=== PATIENT | female | born 1995 | race American Indian/Alaskan Native ===

== ENCOUNTER 2017-06-04 07:29 | Emergency (ER) | payer SELFPAY ==
[2017-06-04 07:54] VITALS: BP 121/51
--- NOTE | 2017-06-04 08:44 | XRay Report ---
FINAL REPORT EXAM: XR ANKLE 3+V RT HISTORY: right ankle injury after a fall TECHNIQUE: Three views of the right ankle. PRIORS: None. FINDINGS: There is no evidence of acute fracture. There is no evidence of joint dislocation. There is no focal osseous lesions seen. IMPRESSION: There is no acute abnormality identified.
[2017-06-04] MEDS ORDERED: TORADOL IM ONE (11:20)
--- NOTE | 2017-06-04 11:21 | Emergency Department Report ---
ED Lower Extremity HPI - General Chief Complaint: Extremity Injury, Lower Stated Complaint: RIGHT ANKLE PAIN Source: patient Mode of arrival: Wheelchair Limitations: No Limitations - History of Present Illness Initial Comments: 21 y/o nontoxic in appearance F presents to the ER complaining of slipping and inverted her right foot when she slipped on ice earlier this morning. Pt states that she has noticed pain, swelling, and limited ROM of the right ankle. Pt denies any radiation of the pain, no numbness, or tingling. Pt reports to 7/10 in severity pain. She has not tried anything for the pain at this time. She denies hitting her head, no LOC, CP, SOB, fever, chills, nausea, or vomitting. LMP: 05/18/17, denies any chance of at this time MD Complaint: ankle injury (right) -: days(s) (1) Injury: Ankle: Right Type of Injury: inversion Place: work Severity: severe Severity scale (0 -10): 7 Improves With: immobilization Worsens With: weight bearing Context: fall Associated Symptoms: swelling, able to partially bear weight - Related Data Previous Rx's Medication Instructions Recorded Last Taken Type Famotidine [Pepcid] 20 mg PO BID #20 tablet 02/25/15 Unknown Rx Loratadine [Claritin] 10 mg PO DAILY #30 tablet 02/25/15 Unknown Rx Prednisone [predniSONE 10 mg 10 mg PO .TAPER #1 tab.ds.pk 02/25/15 Unknown Rx (6-Day Pack, 21 Tabs)] Diclofenac Sodium 50 mg PO BID PRN #20 tab 06/04/17 Unknown Rx Allergies Allergy/AdvReac Type Severity Reaction Status Date / Time shellfish derived AdvReac Swelling Verified 02/25/15 11:13 ED Review of Systems ROS: Stated complaint: RIGHT ANKLE PAIN Other details as noted in HPI Constitutional: denies: chills, fever Eyes: denies: eye pain, eye discharge, vision change ENT: denies: ear pain, throat pain Respiratory: denies: cough, shortness of breath, wheezing Cardiovascular: denies: chest pain, palpitations Gastrointestinal: denies: abdominal pain, nausea, diarrhea Genitourinary: denies: urgency, dysuria, discharge Musculoskeletal: joint swelling, arthralgia, myalgia Skin: other (redness and swelling) Neurological: denies: headache, weakness, paresthesias Psychiatric: denies: anxiety, depression Hematological/Lymphatic: denies: easy bleeding, easy bruising ED Past Medical Hx - Past Medical History Previous Medical History?: No - Surgical History Past Surgical History?: No - Social History Smoking Status: Never Smoker Substance Use Type: Non Opiate Pain - Medications Home Medications: Home Medications Medication Instructions Recorded Confirmed Last Taken Type Famotidine [Pepcid] 20 mg PO BID #20 tablet 02/25/15 Unknown Rx Loratadine [Claritin] 10 mg PO DAILY #30 tablet 02/25/15 Unknown Rx Prednisone [predniSONE 10 mg 10 mg PO .TAPER #1 tab.ds.pk 02/25/15 Unknown Rx (6-Day Pack, 21 Tabs)] Diclofenac Sodium 50 mg PO BID PRN #20 tab 06/04/17 Unknown Rx ED Physical Exam - General Limitations: No Limitations General appearance: alert, in no apparent distress - Head Head exam: Present: atraumatic, normocephalic, normal inspection - Eye Eye exam: Present: normal appearance, PERRL, EOMI Pupils: Present: normal accommodation - ENT ENT exam: Present: mucous membranes moist - Neck Neck exam: Present: normal inspection, full ROM - Respiratory Respiratory exam: Present: normal lung sounds bilaterally. Absent: respiratory distress - Cardiovascular Cardiovascular Exam: Present: regular rate, normal rhythm. Absent: systolic murmur, diastolic murmur, rubs, gallop - Extremities Exam Extremities exam: Present: tenderness, joint swelling, other (ttp at the right lateral asepct of the ankle, ROM with extension and flexion of the ankle increases the pain, TTP along the fibula to the calaneus) - Expanded Lower Extremity Exam Right Upper Leg exam: Present: normal inspection, full ROM Knee exam: Present: normal inspection, full ROM Lower Leg exam: Present: normal inspection, full ROM Ankle exam: Present: tenderness (along the lateral aspect of the right ankle from the distal fibula to the calcneus, swelling and redness noted, limited flex and extension of the ankle), swelling (there is no gross deformity, pulses ans sensation are WNL, strength with 5/5 with plantarflexion, 4/5 with dorsiflexion) Foot/Toe exam: Present: normal inspection, full ROM Gait: Positive: observed and limited by pain - Back Exam Back exam: Present: normal inspection - Neurological Exam Neurological exam: Present: alert, oriented X3, CN II-XII intact - Expanded Neurological Exam Expanded Patient oriented to: Present: person, place, time Speech: Present: fluid speech Cranial nerves: EOM's Intact: Normal Best Eye Response (Inga): (4) open spontaneously Best Motor Response (Inga): (6) obeys commands Best Verbal Response (Kenna): (5) oriented Inga Total: 15 - Psychiatric Psychiatric exam: Present: normal affect, normal mood - Skin Skin exam: Present: warm, dry, intact, other (swelling and redness). Absent: rash ED Course Vital Signs 06/04/17 06/04/17 07:52 11:36 Temperature 98.2 F Pulse Rate 76 Respiratory 16 18 Rate Blood Pressure 121/51 O2 Sat by Pulse 98 Oximetry ED Lower Extremity MDM - Radiology Data Radiology results: report reviewed XR right ankle: there is no evidence of acute fracture, joint dislocation, or any focal osseous lesions. unremarkable study. - Medical Decision Making XR of the Right ankle was unremarkable. Therefore, I will treat as an ankle sprain with Diclofenac Sodium 50 mg BID. RICE=therapy explained to the patient. I have provided pt with ankle stirrup and crutches at this time. I have provided pt with referrals to orthopedics. Pt was alert and oriented, no resp distress, stable, speaking in full sentences throughout ED stay. Critical care attestation.: If time is entered above; I have spent that time in minutes in the direct care of this critically ill patient, excluding procedure time. ED Disposition Clinical Impression: Right ankle sprain Qualifiers: Encounter type: initial encounter Involved ligament of ankle: unspecified ligament Qualified Code(s): S93.401A - Sprain of unspecified ligament of right ankle, initial encounter Disposition: TO HOME OR SELFCARE Is pt being admited?: No Does the pt Need Aspirin: No Condition: Stable Instructions: Diclofenac (By mouth), Ankle Sprain (ED), RICE Therapy (ED) Additional Instructions: RICE= rest, ice, compress, and elevate the joint. Take pain medications as needed for pain and swelling. please follow-up with PCP within 3-5 days. Please return to the ER immediately if your presenting symptoms acutely progress or worsen. Prescriptions: Diclofenac Sodium 50 mg PO BID PRN #20 tab PRN Reason: Pain Referrals: [facility] [Outside] - 3-5 Days [facility] [Outside] - 3-5 Days JORJE NAVARRO MD [Primary Care Provider] - 3-5 Days BARON BEDOLLA MD [Staff Physician] - 3-5 Days Forms: Work/School Release Form(ED)
== END 2017-06-04 12:28 | disposition home or self-care (01) ==
LOC: ED 07:29
DX: S93.401A Sprain of unspecified ligament of right ankle, initial encounter (principal); W01.198A Fall on same level from slipping, tripping and stumbling with subsequent striking against other object, initial encounter; Y93.89 Activity, other specified; Y92.89 Other specified places as the place of occurrence of the external cause; Y99.8 Other external cause status
CPT/HCPCS: 73610; 96372; 99283; J1885

== ENCOUNTER 2017-08-24 19:32 | Emergency (ER) | payer MEDICAID ==
[2017-08-24 20:38] LABS: Basophils % (Auto) 0.2 % (0.0-1.8); Eosinophils % (Auto) 0.2 % (0.0-4.3); Hematocrit 38.7 % (30.3-42.9); Hemoglobin 12.4 gm/dl (10.1-14.3); Lymphocytes # (Auto) 1.9 K/mm3 (1.2-5.4); Lymphocytes % (Auto) 22.1 % (13.4-35.0); Mean Corpuscular HGB Conc 32 % (30-34); Mean Corpuscular Hemoglobin 29 pg (28-32); Mean Corpuscular Volume 91 fl (79-97); Monocytes # (Auto) 0.6 K/mm3 (0.0-0.8); Monocytes % (Auto) 7.4 % (0.0-7.3); Platelet Count 252 K/mm3 (140-440); Red Blood Count 4.27 M/mm3 (3.65-5.03); Red Cell Distribution Width 14.8 % (13.2-15.2)
[2017-08-24 20:52] LABS: Alanine Aminotransferase 8 units/L (7-56); BUN/Creatinine Ratio 12; Blood Urea Nitrogen 7 mg/dL (7-17); Calcium 9.1 mg/dL (8.4-10.2); Hemolysis Index 6
[2017-08-24 20:59] LABS: Bilirubin,Urine NEG (Negative); Blood,Urine NEG (Negative); Color,Urine Yellow (Yellow); Mucus,Urine 2+ /HPF; Urobilinogen,Urine < 2.0 mg/dL (<2.0)
[2017-08-24] MEDS ORDERED: ZOFRAN ORAL LIQ PO ONE (22:19)
[2017-08-24] MEDS ORDERED: CARAFATE PO ONE (22:19)
[2017-08-24] MEDS ORDERED: PEPCID PO ONE (22:19)
[2017-08-24] MEDS ORDERED: BENTYL PO ONE (22:19)
--- NOTE | 2017-08-24 22:20 | Emergency Department Report ---
ED General Adult HPI - General Chief complaint: Abdominal Pain Stated complaint: NAUSEA Time Seen by Provider: 08/24/17 22:07 Source: patient, RN notes reviewed Mode of arrival: Ambulatory Limitations: No Limitations - History of Present Illness Initial comments: This is a 21-year-old female who was previously unknown to this provider, she has no chronic medical conditions and she denies history of abdominal surgeries. Primary care doctor is Dr. Andrews The patient presents to the ER with complaint of burning right upper quadrant pain, which is present for 3 days, does not radiate anywhere, worsens with inspiration, and is accompanied by 3 episodes of nausea and vomiting. Last episode of emesis was at 12:00 PM today. There is no chest pain there is no shortness of breath to me the patient denies dizziness. She also denies headache, neck pain, irritative urinary symptoms, denies hematemesis and bright red blood per rectum, denies constipation, and denies DVT and pulmonary embolus risk factors. She specifically denies oral contraceptives, recent surgeries, recent trips, recent hospital admissions. -: Gradual Location: abdomen Radiation: non-radiation Severity scale (0 -10): 5 Quality: burning Consistency: intermittent Improves with: other Worsens with: other Associated Symptoms: nausea/vomiting. denies: confusion, chest pain, cough, diaphoresis, fever/chills, headaches, loss of appetite, malaise, rash, seizure, shortness of breath, syncope, weakness - Related Data Previous Rx's Medication Instructions Recorded Last Taken Type Famotidine [Pepcid] 20 mg PO BID #20 tablet 02/25/15 Unknown Rx Loratadine [Claritin] 10 mg PO DAILY #30 tablet 02/25/15 Unknown Rx Prednisone [predniSONE 10 mg 10 mg PO .TAPER #1 tab.ds.pk 02/25/15 Unknown Rx (6-Day Pack, 21 Tabs)] Diclofenac Sodium 50 mg PO BID PRN #20 tab 06/04/17 Unknown Rx Dicyclomine [Bentyl] 10 mg PO QID PRN #20 capsule 08/24/17 Unknown Rx Famotidine [Pepcid] 20 mg PO BID #60 tablet 08/24/17 Unknown Rx Ondansetron [Zofran Odt] 4 mg PO Q8HR PRN #20 tab.rapdis 08/24/17 Unknown Rx Allergies Allergy/AdvReac Type Severity Reaction Status Date / Time shellfish derived AdvReac Swelling Verified 02/25/15 11:13 ED Review of Systems ROS: Stated complaint: NAUSEA Other details as noted in HPI Comment: All other systems reviewed and negative ED Past Medical Hx - Past Medical History Previous Medical History?: Yes Additional medical history: heart murmur - Surgical History Past Surgical History?: No - Social History Smoking Status: Current Every Day Smoker Substance Use Type: Marijuana - Medications Home Medications: Home Medications Medication Instructions Recorded Confirmed Last Taken Type Famotidine [Pepcid] 20 mg PO BID #20 tablet 02/25/15 Unknown Rx Loratadine [Claritin] 10 mg PO DAILY #30 tablet 02/25/15 Unknown Rx Prednisone [predniSONE 10 mg 10 mg PO .TAPER #1 tab.ds.pk 02/25/15 Unknown Rx (6-Day Pack, 21 Tabs)] Diclofenac Sodium 50 mg PO BID PRN #20 tab 06/04/17 Unknown Rx Dicyclomine [Bentyl] 10 mg PO QID PRN #20 capsule 08/24/17 Unknown Rx Famotidine [Pepcid] 20 mg PO BID #60 tablet 08/24/17 Unknown Rx Ondansetron [Zofran Odt] 4 mg PO Q8HR PRN #20 tab.rapdis 08/24/17 Unknown Rx ED Physical Exam - General Limitations: No Limitations General appearance: alert, in no apparent distress - Head Head exam: Present: atraumatic, normocephalic - Eye Eye exam: Present: normal appearance, EOMI. Absent: nystagmus - ENT ENT exam: Present: normal exam, normal orophraynx, mucous membranes moist, normal external ear exam - Neck Neck exam: Present: normal inspection, full ROM. Absent: tenderness, meningismus - Respiratory Respiratory exam: Present: normal lung sounds bilaterally. Absent: respiratory distress - Cardiovascular Cardiovascular Exam: Present: regular rate, normal rhythm, normal heart sounds. Absent: bradycardia, tachycardia, irregular rhythm, systolic murmur, diastolic murmur, rubs, gallop - GI/Abdominal GI/Abdominal exam: Present: soft, normal bowel sounds, other (there is a negative Sotomayor sign. There is negative Rovsing sign. There is no right lower quadrant tenderness. There is no right upper quadrant). Absent: distended, tenderness, guarding, rebound, rigid, pulsatile mass - Extremities Exam Extremities exam: Present: normal inspection, full ROM, normal capillary refill. Absent: pedal edema, joint swelling, calf tenderness - Back Exam Back exam: Present: normal inspection, full ROM. Absent: tenderness, CVA tenderness (R), paraspinal tenderness, vertebral tenderness - Neurological Exam Neurological exam: Present: alert, oriented X3, CN II-XII intact, normal gait, other (Extraocular movements intact. Tongue midline. No facial droop. Facial sensation intact to light touch in the V1, V2, V3 distribution bilaterally. 5 and 5 strength in 4 extremities.. Sensation is intact to light touch in 4 extremities.). Absent: motor sensory deficit - Psychiatric Psychiatric exam: Present: normal affect, normal mood - Skin Skin exam: Present: warm, dry, intact, normal color. Absent: rash ED Course Vital Signs 08/24/17 08/24/17 08/24/17 20:03 21:50 21:55 Temperature 98.9 F 98.6 F Pulse Rate 79 96 H Respiratory 18 16 Rate Blood Pressure 120/60 Blood Pressure 119/67 [Right] O2 Sat by Pulse 99 98 100 Oximetry 08/24/17 08/24/17 21:58 22:00 Temperature Pulse Rate Respiratory 16 Rate Blood Pressure 120/59 Blood Pressure [Right] O2 Sat by Pulse 100 100 Oximetry ED Medical Decision Making - Lab Data Result diagrams: 08/24/17 20:13 08/24/17 20:13 Vital Signs 08/24/17 08/24/17 08/24/17 20:03 21:50 21:55 Temperature 98.9 F 98.6 F Pulse Rate 79 96 H Respiratory 18 16 Rate Blood Pressure 120/60 Blood Pressure 119/67 [Right] O2 Sat by Pulse 99 98 100 Oximetry 08/24/17 08/24/17 21:58 22:00 Temperature Pulse Rate Respiratory 16 Rate Blood Pressure 120/59 Blood Pressure [Right] O2 Sat by Pulse 100 100 Oximetry Lab Results 08/24/17 08/24/17 08/24/17 Range/Units 20:13 20:13 20:13 WBC 8.5 (4.5-11.0) K/mm3 RBC 4.27 (3.65-5.03) M/mm3 Hgb 12.4 (10.1-14.3) gm/dl Hct 38.7 (30.3-42.9) % MCV 91 (79-97) fl MCH 29 (28-32) pg MCHC 32 (30-34) % RDW 14.8 (13.2-15.2) % Plt Count 252 (140-440) K/mm3 Lymph % (Auto) 22.1 (13.4-35.0) % Benson % (Auto) 7.4 H (0.0-7.3) % Eos % (Auto) 0.2 (0.0-4.3) % Baso % (Auto) 0.2 (0.0-1.8) % Lymph # 1.9 (1.2-5.4) K/mm3 Benson # 0.6 (0.0-0.8) K/mm3 Eos # 0.0 (0.0-0.4) K/mm3 Baso # 0.0 (0.0-0.1) K/mm3 Seg Neutrophils % 70.1 H (40.0-70.0) % Seg Neutrophils # 6.0 (1.8-7.7) K/mm3 Sodium 140 (137-145) mmol/L Potassium 4.0 (3.6-5.0) mmol/L Chloride 101.6 (98-107) mmol/L Carbon Dioxide 27 (22-30) mmol/L Anion Gap 15 mmol/L BUN 7 (7-17) mg/dL Creatinine 0.6 L (0.7-1.2) mg/dL Estimated GFR > 60 ml/min BUN/Creatinine Ratio 12 % Glucose 81 (65-100) mg/dL Calcium 9.1 (8.4-10.2) mg/dL Total Bilirubin 0.20 (0.1-1.2) mg/dL AST 13 (5-40) units/L ALT 8 (7-56) units/L Alkaline Phosphatase 72 (35-129) units/L Total Protein 7.8 (6.3-8.2) g/dL Albumin 4.0 (3.9-5) g/dL Albumin/Globulin Ratio 1.1 % HCG, Qual Negative (Negative) Urine Color (Yellow) Urine Turbidity (Clear) Urine pH (5.0-7.0) Ur Specific [place] (1.003-1.030) Urine Protein (Negative) mg/dL Urine Glucose (UA) (Negative) mg/dL Urine Ketones (Negative) mg/dL Urine Blood (Negative) Urine Nitrite (Negative) Urine Bilirubin (Negative) Urine Urobilinogen (<2.0) mg/dL Ur Leukocyte Esterase (Negative) Urine WBC (Auto) (0.0-6.0) /HPF Urine RBC (Auto) (0.0-6.0) /HPF U Epithel Cells (Auto) (0-13.0) /HPF Urine Mucus /HPF 08/24/17 Range/Units Unknown WBC (4.5-11.0) K/mm3 RBC (3.65-5.03) M/mm3 Hgb (10.1-14.3) gm/dl Hct (30.3-42.9) % MCV (79-97) fl MCH (28-32) pg MCHC (30-34) % RDW (13.2-15.2) % Plt Count (140-440) K/mm3 Lymph % (Auto) (13.4-35.0) % Benson % (Auto) (0.0-7.3) % Eos % (Auto) (0.0-4.3) % Baso % (Auto) (0.0-1.8) % Lymph # (1.2-5.4) K/mm3 Benson # (0.0-0.8) K/mm3 Eos # (0.0-0.4) K/mm3 Baso # (0.0-0.1) K/mm3 Seg Neutrophils % (40.0-70.0) % Seg Neutrophils # (1.8-7.7) K/mm3 Sodium (137-145) mmol/L Potassium (3.6-5.0) mmol/L Chloride (98-107) mmol/L Carbon Dioxide (22-30) mmol/L Anion Gap mmol/L BUN (7-17) mg/dL Creatinine (0.7-1.2) mg/dL Estimated GFR ml/min BUN/Creatinine Ratio % Glucose (65-100) mg/dL Calcium (8.4-10.2) mg/dL Total Bilirubin (0.1-1.2) mg/dL AST (5-40) units/L ALT (7-56) units/L Alkaline Phosphatase (35-129) units/L Total Protein (6.3-8.2) g/dL Albumin (3.9-5) g/dL Albumin/Globulin Ratio % HCG, Qual (Negative) Urine Color Yellow (Yellow) Urine Turbidity Clear (Clear) Urine pH 7.0 (5.0-7.0) Ur Specific [place] 1.030 (1.003-1.030) Urine Protein 30 mg/dl (Negative) mg/dL Urine Glucose (UA) Neg (Negative) mg/dL Urine Ketones Tr (Negative) mg/dL Urine Blood Neg (Negative) Urine Nitrite Neg (Negative) Urine Bilirubin Neg (Negative) Urine Urobilinogen < 2.0 (<2.0) mg/dL Ur Leukocyte Esterase Tr (Negative) Urine WBC (Auto) 8.0 H (0.0-6.0) /HPF Urine RBC (Auto) 3.0 (0.0-6.0) /HPF U Epithel Cells (Auto) 3.0 (0-13.0) /HPF Urine Mucus 2+ /HPF - EKG Data -: EKG Interpreted by Me EKG shows normal: sinus rhythm Rate: normal - EKG Data When compared to previous EKG there are: previous EKG unavailable 08/24/17 22:35 Normal sinus, 68 bpm, incomplete right bundle-branch block, not morphologically consistent with STEMI, unremarkable EKG - Radiology Data Radiology results: image reviewed interpreted by me: X-ray the chest is negative for acute disease - Medical Decision Making Differential diagnosis, including but not limited to: Pneumonia, pleuritis, diaphragmatic irritation, GERD, gastritis, pancreatitis, biliary colic Assessment and plan: 21-year-old female with right upper quadrant abdominal discomfort. There are no pulmonary embolus or DVT risk factors, she is low risk by well's criteria, perc negative. There is a negative Sotomayor sign, there is no right upper quadrant tenderness, directive laboratory studies are unremarkable. X-ray of the chest is negative. [place] improved after oral pain medicine and nausea medicine. Critical care attestation.: If time is entered above; I have spent that time in minutes in the direct care of this critically ill patient, excluding procedure time. ED Disposition Clinical Impression: Right sided abdominal pain Disposition: DC-01 TO HOME OR SELFCARE Is pt being admited?: No Does the pt Need Aspirin: No Condition: Stable Instructions: Abdominal Pain (ED) Additional Instructions: Avoid consumption of heavy and/or spicy foods. Take pain medication, nausea medication as needed/directed. Follow up with a primary care doctor within the next week. Return to the ER right away with hip pain, worse pain, migration of pain, fevers, chills, lethargy, irritability, projectile vomiting, change in mental status, confusion, inability to tolerate liquids. Referrals: JORJE NAVARRO MD [Primary Care Provider] - 3-5 Days
--- NOTE | 2017-08-24 23:23 | XRay Report ---
FINAL REPORT PROCEDURE: XR CHEST ROUTINE 2V TECHNIQUE: PA and lateral chest radiographs were obtained. CPT 74843 HISTORY: ruq pain, cough COMPARISON: No prior studies are available for comparison. FINDINGS: Heart: Normal. Mediastinum/Vessels: Normal. Lungs/Pleural space: Normal. Bony thorax: No acute osseous abnormality. Other: IMPRESSION: Normal examination.
[2017-08-24 23:43] VITALS: BP 122/66
== END 2017-08-24 23:44 | disposition home or self-care (01) ==
LOC: ED 19:32
DX: R10.11 Right upper quadrant pain (principal); R11.2 Nausea with vomiting, unspecified; F17.200 Nicotine dependence, unspecified, uncomplicated; F12.10 Cannabis abuse, uncomplicated; Z91.013 Allergy to seafood
CPT/HCPCS: 36415; 71046; 80053; 81001; 84703; 85025; 93005; 93010; 99284; Q0162

== ENCOUNTER 2018-11-23 11:55 | Inpatient (IN) | payer OTHER ==
[2018-11-23] MEDS ORDERED: ZOFRAN IV PRN (12:48)
[2018-11-23] MEDS ORDERED: BRETHINE SUB-Q PRN (12:48)
[2018-11-23] MEDS ORDERED: BRETHINE IVP PRN (12:48)
[2018-11-23] MEDS ORDERED: NUBAIN IV PRN (12:48)
[2018-11-23] MEDS ORDERED: MINERAL OIL PO PRN (12:48)
[2018-11-23] MEDS ORDERED: PHENERGAN PO PRN (12:48)
[2018-11-23] MEDS ORDERED: NARCAN 0.4 MG/1 ML IV PRN (12:48)
[2018-11-23] MEDS ORDERED: STADOL IV PRN (12:48)
[2018-11-23] MEDS ORDERED: XYLOCAINE 2% INFILTRATI ONE (12:48)
--- NOTE | 2018-11-23 12:55 | History and Physical Report ---
History of Present Illness Date of examination: 11/23/18 Date of admission: 11/23/18 Chief complaint: Sent from medical lab scientist office for elevated BP History of present illness: Pt is a 22 yo at 40.0 wks EGA who presents with new onset elevated blood pressure. She denies MCLEOD, scotomata, swelling of face and hands. She reports positive movement and intermittent cramping. She received care since 30 wks EGA with [facility]. Her course was complicated by a UTI, treated. Past History Past Surgical History: no surgical history Family/Genetic History: none Social history: no significant social history - Obstetrical History Expected Date of Delivery: 11/23/18 Actual Gestation: 40 Week(s) 0 Day(s) : 1 Para: 0 Medications and Allergies Allergies Allergy/AdvReac Type Severity Reaction Status Date / Time shellfish derived AdvReac Swelling Verified 11/23/18 11:56 Home Medications Medication Instructions Recorded Confirmed Last Taken Type Vit-Fe Fumar-FA [ 1 tab PO QDAY 11/23/18 11/23/18 Unknown History Vitamin] Review of Systems All systems: negative Eyes: no blurred vision Ears, nose, mouth and throat: no headache Gastrointestinal: no abdominal pain, no nausea, no vomiting Genitourinary: no vaginal bleeding, no leakage of fluid - Vital Signs Vital signs: Vital Signs Pulse BP 59 L 153/92 11/23/18 12:34 11/23/18 12:34 Temp Pulse Resp BP Pulse Ox 59 L 153/92 11/23/18 12:34 11/23/18 12:34 - Physical Exam Abdomen: Positive: normal appearance, soft Uterus: Positive: normal size (Gravid), normal contour - Obstetrical FHR: auscultation normal Uterine Contraction Monitor Mode: External Uterine Contraction Pattern: Irregular Results All other labs normal. Assessment and Plan A: 22 yo at 40.0 wks EGA with elevated BP Membranes intact Cervix unfavorable for induction P: Admit to L&D for IOL with Cervidil Collect PIH labs Monitor BP and symptoms, Labetalol for BP persistently at or above 160/110 Anticipate
[2018-11-23] MEDS ORDERED: PITOCin/NS 30 UNIT/500ML 30 UNITS/500 ML BAG IV SCH ×2 (13:00)
[2018-11-23] MEDS ORDERED: PITOCin/NS 20 UNIT/1000ML DRIP 20 UNITS/1,000 ML BAG IV SCH (13:00)
[2018-11-23] MEDS ORDERED: NORMODYNE IV PRN (13:11)
[2018-11-23] MEDS ORDERED: CERVIDIL VG ONE (13:30)
[2018-11-23 13:39] LABS: Hematocrit 33.1 % (30.3-42.9); Hemoglobin 11.2 gm/dl (10.1-14.3); Mean Corpuscular HGB Conc 34 % (30-34); Mean Corpuscular Volume 91 fl (79-97); Platelet Count 219 K/mm3 (140-440); Red Blood Count 3.62 M/mm3 (3.65-5.03); Red Cell Distribution Width 12.8 % (13.2-15.2)
[2018-11-23 13:59] LABS: Bacteria,Urine 3+ /HPF (Negative); Bilirubin,Urine NEG (Negative); Blood,Urine NEG (Negative); Color,Urine Yellow (Yellow); Mucus,Urine FEW /HPF; Protein,Urine <15 mg/dL mg/dL (Negative); Urobilinogen,Urine < 2.0 mg/dL (<2.0)
[2018-11-23 14:16] LABS: Alanine Aminotransferase 11 units/L (7-56); Uric Acid 4.4 mg/dL (3.5-7.6)
[2018-11-23 15:45] LABS: Hematocrit 31.5 % (30.3-42.9); Hemoglobin 10.7 gm/dl (10.1-14.3); Mean Corpuscular HGB Conc 34 % (30-34); Mean Corpuscular Volume 91 fl (79-97); Platelet Count 213 K/mm3 (140-440); Red Blood Count 3.45 M/mm3 (3.65-5.03); Red Cell Distribution Width 13.2 % (13.2-15.2)
--- NOTE | 2018-11-23 22:28 | Progress Note ---
Assessment and Plan A: 22 yo G1 at 40.0 wks Regular contractions Cervix unfavorable P: Continue current Cervidil induction Re-evaluate progress after 12 hours of Cervidil or sooner PRN Anticipate Subjective - Subjective Date of service: 11/23/18 Principal diagnosis: IOL for gHTN Interval history: Pt is a 22 yo at 40.0 wks EGA here for IOL for new onset elevated blood pressure. She denies MCLEOD, scotomata, swelling of face and hands. She reports positive movement and regular cramping. She received care since 30 wks EGA with [facility]. Her course was complicated by a UTI, treated. GBS negative. Patient reports: contractions (Cervidil has been in place for 4 hours.) Objective - Vital Signs Vital Signs: Vital Signs - 12hr 11/23/18 11/23/18 11/23/18 12:34 12:53 12:54 Temperature Pulse Rate 59 L 75 76 Respiratory Rate Blood Pressure 153/92 136/95 144/99 O2 Sat by Pulse Oximetry 11/23/18 11/23/18 11/23/18 13:09 13:14 13:24 Temperature 98.8 F Pulse Rate 68 68 68 Respiratory 18 Rate Blood Pressure 150/92 136/86 O2 Sat by Pulse Oximetry 11/23/18 11/23/18 11/23/18 13:57 14:00 14:05 Temperature Pulse Rate 86 86 78 Respiratory Rate Blood Pressure 136/82 O2 Sat by Pulse 98 97 Oximetry 11/23/18 11/23/18 11/23/18 14:10 14:15 14:20 Temperature Pulse Rate 79 68 70 Respiratory Rate Blood Pressure O2 Sat by Pulse 98 98 97 Oximetry 11/23/18 11/23/18 11/23/18 14:25 14:26 14:38 Temperature Pulse Rate 75 72 71 Respiratory Rate Blood Pressure 135/73 O2 Sat by Pulse 98 97 Oximetry 11/23/18 11/23/18 11/23/18 14:43 14:48 14:53 Temperature Pulse Rate 73 74 71 Respiratory Rate Blood Pressure O2 Sat by Pulse 97 97 97 Oximetry 11/23/18 11/23/18 11/23/18 14:56 14:58 15:03 Temperature Pulse Rate 72 75 77 Respiratory Rate Blood Pressure 131/81 O2 Sat by Pulse 97 97 Oximetry 11/23/18 11/23/18 11/23/18 15:08 15:13 15:18 Temperature Pulse Rate 74 74 82 Respiratory Rate Blood Pressure O2 Sat by Pulse 97 97 97 Oximetry 11/23/18 11/23/18 11/23/18 15:23 15:26 15:28 Temperature Pulse Rate 71 74 65 Respiratory Rate Blood Pressure 130/79 O2 Sat by Pulse 97 97 Oximetry 11/23/18 11/23/18 11/23/18 15:33 15:38 15:43 Temperature Pulse Rate 72 65 80 Respiratory Rate Blood Pressure O2 Sat by Pulse 97 97 97 Oximetry 11/23/18 11/23/18 11/23/18 15:48 15:58 16:27 Temperature Pulse Rate 94 H 71 76 Respiratory Rate Blood Pressure 131/71 128/75 O2 Sat by Pulse 96 Oximetry 11/23/18 11/23/18 11/23/18 16:56 17:27 17:56 Temperature Pulse Rate 69 67 65 Respiratory Rate Blood Pressure 137/80 121/70 129/74 O2 Sat by Pulse Oximetry 11/23/18 11/23/18 11/23/18 18:26 18:56 19:44 Temperature Pulse Rate 62 64 67 Respiratory Rate Blood Pressure 129/82 126/79 135/84 O2 Sat by Pulse Oximetry 11/23/18 11/23/18 20:44 21:32 Temperature 97.6 F Pulse Rate 75 Respiratory 18 Rate Blood Pressure 132/86 O2 Sat by Pulse Oximetry - Exam FHR: category 1 Uterine Contraction Monitor Mode: External Cervical Dilatation: 1 Cervical Effacement Percentage: 0 station: high Uterine Contraction Frequency (min): 2 Uterine Contraction Duration: 50 seconds Uterine Contraction Pattern: Regular Extremities: edema (2+) - Labs Labs: Abnormal Labs 11/23/18 11/23/18 11/23/18 12:00 12:00 12:00 RBC 3.62 L RDW 12.8 L Creatinine 0.6 L Lactate Dehydrogenase 274 H Urine WBC (Auto) 11.0 H 11/23/18 15:12 RBC 3.45 L RDW Creatinine Lactate Dehydrogenase Urine WBC (Auto) Laboratory Results - last 24 hr 11/23/18 11/23/18 11/23/18 12:00 12:00 12:00 WBC 5.3 RBC 3.62 L Hgb 11.2 Hct 33.1 MCV 91 MCH 31 MCHC 34 RDW 12.8 L Plt Count 219 Creatinine 0.6 L Estimated GFR > 60 Uric Acid 4.4 AST 23 ALT 11 Lactate Dehydrogenase 274 H Urine Color Yellow Urine Turbidity Slightly-cloudy Urine pH 6.0 Ur Specific [place] 1.008 Urine Protein <15 mg/dl Urine Glucose (UA) Neg Urine Ketones Neg Urine Blood Neg Urine Nitrite Neg Urine Bilirubin Neg Urine Urobilinogen < 2.0 Ur Leukocyte Esterase Mod Urine WBC (Auto) 11.0 H Urine RBC (Auto) 6.0 U Epithel Cells (Auto) 10.0 Urine Bacteria (Auto) 3+ Urine Mucus Few Blood Type Antibody Screen 11/23/18 11/23/18 12:00 15:12 WBC 5.5 RBC 3.45 L Hgb 10.7 Hct 31.5 MCV 91 MCH 31 MCHC 34 RDW 13.2 Plt Count 213 Creatinine Estimated GFR Uric Acid AST ALT Lactate Dehydrogenase Urine Color Urine Turbidity Urine pH Ur Specific [place] Urine Protein Urine Glucose (UA) Urine Ketones Urine Blood Urine Nitrite Urine Bilirubin Urine Urobilinogen Ur Leukocyte Esterase Urine WBC (Auto) Urine RBC (Auto) U Epithel Cells (Auto) Urine Bacteria (Auto) Urine Mucus Blood Type A POSITIVE Antibody Screen Negative
[2018-11-23] MEDS: SUBLIMAZE IV PRN (23:40)
[2018-11-24] MEDS: SUBLIMAZE IV PRN (04:08)
[2018-11-24] MEDS: LACTATED RINGERS 1,000 ML IV SCH ×2 (04:59→12:37)
--- NOTE | 2018-11-24 08:23 | Progress Note ---
Assessment and Plan A: IUP at 40w1d PIH Morbid Obesity P: Stop pitocin. Cytotec for cervical ripening. Continue to monitor BP. Subjective - Subjective Date of service: 11/24/18 Principal diagnosis: IOL for gHTN Interval history: No new issues Patient reports: contractions (Cervidil has been in place for 4 hours.), no new complaints Objective - Vital Signs Vital Signs: Vital Signs - 12hr 11/23/18 11/23/18 11/23/18 20:44 21:32 22:32 Temperature 97.6 F Pulse Rate 75 73 Respiratory 18 Rate Blood Pressure 132/86 148/90 11/23/18 11/23/18 11/23/18 23:01 23:31 23:40 Temperature Pulse Rate 68 67 Respiratory 20 Rate Blood Pressure 141/90 141/86 11/24/18 11/24/18 11/24/18 00:31 01:01 01:31 Temperature Pulse Rate 65 68 85 Respiratory Rate Blood Pressure 129/76 161/88 132/85 11/24/18 11/24/18 11/24/18 02:01 02:31 03:01 Temperature Pulse Rate 65 74 83 Respiratory Rate Blood Pressure 135/75 145/91 141/87 11/24/18 11/24/18 11/24/18 03:32 04:01 04:08 Temperature Pulse Rate 80 73 Respiratory 20 Rate Blood Pressure 163/95 147/87 11/24/18 11/24/18 11/24/18 04:31 05:01 05:31 Temperature Pulse Rate 87 70 71 Respiratory Rate Blood Pressure 144/86 143/81 143/85 11/24/18 11/24/18 11/24/18 05:35 06:01 06:31 Temperature 98.6 F Pulse Rate 77 69 Respiratory 20 Rate Blood Pressure 137/82 162/86 11/24/18 11/24/18 11/24/18 06:32 07:01 07:31 Temperature Pulse Rate 69 66 68 Respiratory Rate Blood Pressure 164/93 144/82 154/88 11/24/18 08:01 Temperature Pulse Rate 71 Respiratory Rate Blood Pressure 159/91 - Exam Breasts: deferred Abdomen: Present: soft (gravid, obese ) FHR: auscultation normal Cervical Dilatation: 1 Cervical Effacement Percentage: 50 station: -3 Uterine Contraction Pattern: Irregular Uterine Tone Measurement Phase: Resting - Labs Labs: Abnormal Labs 11/23/18 11/23/18 11/23/18 12:00 12:00 12:00 RBC 3.62 L RDW 12.8 L Creatinine 0.6 L Lactate Dehydrogenase 274 H Urine WBC (Auto) 11.0 H 11/23/18 15:12 RBC 3.45 L RDW Creatinine Lactate Dehydrogenase Urine WBC (Auto) Laboratory Results - last 24 hr 11/23/18 11/23/18 11/23/18 12:00 12:00 12:00 WBC 5.3 RBC 3.62 L Hgb 11.2 Hct 33.1 MCV 91 MCH 31 MCHC 34 RDW 12.8 L Plt Count 219 Creatinine 0.6 L Estimated GFR > 60 Uric Acid 4.4 AST 23 ALT 11 Lactate Dehydrogenase 274 H Urine Color Yellow Urine Turbidity Slightly-cloudy Urine pH 6.0 Ur Specific [place] 1.008 Urine Protein <15 mg/dl Urine Glucose (UA) Neg Urine Ketones Neg Urine Blood Neg Urine Nitrite Neg Urine Bilirubin Neg Urine Urobilinogen < 2.0 Ur Leukocyte Esterase Mod Urine WBC (Auto) 11.0 H Urine RBC (Auto) 6.0 U Epithel Cells (Auto) 10.0 Urine Bacteria (Auto) 3+ Urine Mucus Few Blood Type Antibody Screen 11/23/18 11/23/18 12:00 15:12 WBC 5.5 RBC 3.45 L Hgb 10.7 Hct 31.5 MCV 91 MCH 31 MCHC 34 RDW 13.2 Plt Count 213 Creatinine Estimated GFR Uric Acid AST ALT Lactate Dehydrogenase Urine Color Urine Turbidity Urine pH Ur Specific [place] Urine Protein Urine Glucose (UA) Urine Ketones Urine Blood Urine Nitrite Urine Bilirubin Urine Urobilinogen Ur Leukocyte Esterase Urine WBC (Auto) Urine RBC (Auto) U Epithel Cells (Auto) Urine Bacteria (Auto) Urine Mucus Blood Type A POSITIVE Antibody Screen Negative
[2018-11-24] MEDS ORDERED: CYTOTEC VG SCH (09:00)
[2018-11-25] MEDS ORDERED: CYTOTEC ONE (01:46)
[2018-11-25] MEDS ORDERED: CYTOTEC VG SCH (12:00)
[2018-11-25] MEDS: CYTOTEC VG SCH ×2 (12:10→21:07)
--- NOTE | 2018-11-25 12:34 | Progress Note ---
Assessment and Plan A: IUP at 40w2d undergoing induction of labor s/p cervidil and low dose pitocin with no cervical change PIH Morbid Obesity P: Cytotec 25 mcg placed per vagina. Continue induction of labor with close monitoring of maternal and status. Subjective - Subjective Date of service: 11/25/18 Principal diagnosis: IOL for gHTN Interval history: No new issues. She does not feel contractions. BPs in mild range. Patient reports: contractions (Cervidil has been in place for 4 hours.), no new complaints Objective - Vital Signs Vital Signs: Vital Signs - 12hr 11/25/18 11/25/18 11/25/18 00:42 01:13 01:44 Pulse Rate 67 58 L 59 L Blood Pressure 134/87 146/81 139/62 11/25/18 11/25/18 11/25/18 02:12 03:12 03:43 Pulse Rate 61 63 60 Blood Pressure 145/66 136/87 152/69 11/25/18 11/25/18 11/25/18 04:13 04:43 05:12 Pulse Rate 60 60 73 Blood Pressure 158/84 146/68 123/70 11/25/18 11/25/18 11/25/18 05:43 06:12 07:12 Pulse Rate 67 78 61 Blood Pressure 135/70 137/83 130/86 11/25/18 11/25/18 11/25/18 07:42 07:57 08:13 Pulse Rate 56 L 74 62 Blood Pressure 133/82 138/89 136/83 11/25/18 11/25/18 11/25/18 08:44 09:12 09:43 Pulse Rate 54 L 75 78 Blood Pressure 140/83 132/87 121/79 11/25/18 11/25/18 11/25/18 10:12 10:43 11:12 Pulse Rate 85 73 76 Blood Pressure 123/69 117/64 134/70 11/25/18 11/25/18 11:43 12:13 Pulse Rate 102 H 77 Blood Pressure 139/79 130/75 - Exam Breasts: deferred Cardiovascular: Regular rate Lungs: Clear to auscultation Abdomen: Present: soft (gravid) Uterus: Present: normal (gravid) FHR: auscultation normal Cervical Dilatation: 1 Cervical Effacement Percentage: 50 station: -4 Uterine Contraction Pattern: Irregular Uterine Tone Measurement Phase: Resting Uterine Contraction Intensity: Mild Extremities: edema - Labs Labs: Abnormal Labs 11/23/18 11/23/18 11/23/18 12:00 12:00 12:00 RBC 3.62 L RDW 12.8 L Creatinine 0.6 L Lactate Dehydrogenase 274 H Urine WBC (Auto) 11.0 H 11/23/18 15:12 RBC 3.45 L RDW Creatinine Lactate Dehydrogenase Urine WBC (Auto)
[2018-11-25] MEDS: LACTATED RINGERS 1,000 ML IV SCH (21:07)
[2018-11-26] MEDS: CYTOTEC VG SCH (01:22)
[2018-11-26] MEDS ORDERED: REGLAN IV ONE (06:00)
[2018-11-26] MEDS ORDERED: PEPCID IV ONE (06:00)
[2018-11-26] MEDS ORDERED: LACTATED RINGERS 1,000 ML IV SCH ×2 (06:00)
[2018-11-26] MEDS ORDERED: PITOCin/NS 20 UNIT/1000ML DRIP 20 UNITS/1,000 ML BAG IV SCH ×3 (06:00→11:41)
[2018-11-26] MEDS ORDERED: BICITRA PO ONE ×2 (06:00→07:30)
[2018-11-26] MEDS ORDERED: NARCAN 0.4 MG/1 ML IV PRN ×2 (07:06→12:00)
[2018-11-26] MEDS ORDERED: PHENERGAN PO PRN (07:06)
[2018-11-26] MEDS ORDERED: DILAUDID IV PRN ×2 (07:06)
[2018-11-26] MEDS ORDERED: ZOFRAN IV PRN ×2 (07:06→12:00)
[2018-11-26] MEDS ORDERED: PHENERGAN PR PRN (07:06)
[2018-11-26] MEDS ORDERED: NUBAIN IV PRN (07:08)
--- NOTE | 2018-11-26 07:10 | Anesthesia Day of Surgery ---
Anesthesia Day of Surgery - Day of Surgery Patient Examined: Yes Patient H&P Reviewed: Yes Patient is NPO: Yes
--- NOTE | 2018-11-26 07:10 | Anesthesia Consultation ---
Anesthesia Consult and Med Hx Date of service: 11/26/18 - Airway Anesthetic Teeth Evaluation: Good ROM Head & Neck: Adequate Mental/Hyoid Distance: Adequate Mallampati Class: Class II Intubation Access Assessment: Good - Pulmonary Exam CTA: Yes - Cardiac Exam Cardiac Exam: RRR - Pre-Operative Health Status ASA Pre-Surgery Classification: ASA2, ASA3 Proposed Anesthetic Plan: Spinal - Pulmonary Hx Asthma: No COPD: No Hx Pneumonia: No - Cardiovascular System Hx Hypertension: Yes (PIH) - Central Nervous System Hx Seizures: No Hx Psychiatric Problems: No - Endocrine Hx Renal Disease: No Hx End Stage Renal Disease: No Hx Hypothyroidism: No Hx Hyperthyroidism: No - Hematic Hx Anemia: No Hx Sickle Cell Disease: No - Other Systems Hx Alcohol Use: No
[2018-11-26] MEDS ORDERED: PEPCID PO NR (07:30)
[2018-11-26] MEDS ORDERED: REGLAN IV NR (07:30)
[2018-11-26] MEDS ORDERED: ceFAZolin 2 GM in NACL 0.9% 100 ML IV ONE (07:30)
[2018-11-26] MEDS ORDERED: TYLENOL PO SCH ×2 (08:00)
[2018-11-26] MEDS ORDERED: SODIUM CHLORIDE FLUSH SYRINGE 10 ML IV NR ×2 (08:00→11:41)
[2018-11-26] MEDS ORDERED: NACL 0.9% IR ONE (08:05)
[2018-11-26] MEDS ORDERED: WATER FOR IRRIG STERILE IR ONE (08:05)
--- NOTE | 2018-11-26 08:57 | Procedure Note ---
OB Delivery Note - Delivery Date of Delivery: 11/26/18 Surgeon: MERLYN ZHONG Estimated blood loss: other (800 mL) - Section Preop diagnosis: arrest of dilation, other (Failed induction of labor ) Postop diagnosis: same section procedure: section, primary low transverse Disposition: PACU Complications: none Narrative: Please see operative report - Infant A at 1 minute: 8 at 5 minutes: 8 Infant Gender: Female (3451g (7lb 10oz) @ 0816 am)
--- NOTE | 2018-11-26 08:59 | Operative Report ---
Operative Report Operative Report: Date of procedure: November 26, 2018 Preoperative diagnosis: 1) IUP at 40w3d 2) Gestational HTN 3) Failed Induction of Labor Postoperative diagnosis: Same Procedure: Primary low transverse section Surgeon: Shi Crow M.D. Anesthesia: Regional Findings: 1) Viable female , Apgars 8 and 8, weight 3451g, (7 lb 10 oz) in cephalic presentation. Occiput posterior 2) Normal-appearing uterus ovaries and tubes Estimated blood loss: 800 mL IV fluids: 1000 mL Urine output: 300 mL, clear at the end of the procedure Drains: Allen to gravity Specimens: Placenta to pathology Complications:None. Counts correct x 3 Disposition: Stable to PACU Indication for procedure: Patient is a 22-year-old -[place] female prima at 40 weeks 3 days who has undergone cervical ripening with multiple agents with no change in her cervix. The decision was made to proceed with section. Operation in detail: After the risks, benefits, alternatives and complications were explained to the patient she gave informed consent for the procedure. She was subsequently taken to the operating room where regional was noted to be adequate. She was subsequently placed in the dorsal supine position with leftward tilt and prepped and draped in a normal sterile fashion. heart tones were noted to be in the 120 s prior to incision. A timeout was performed. A Pfannenstiel skin incision was made with the knife and carried down to the layer of the fascia with the Bovie. The fascia was incised in the midline and the fascial incision was extended bilaterally with the Bovie. Attention was then turned to the superior aspect of the incision which was grasped with two Kochers, tented up, and dissected off the rectus muscles. Attention was then turned to the inferior aspect of the incision which was grasped with two Kochers, tented up and dissected off the rectus muscles. The rectus muscles were then in the midline and partially transected for adequate visualization. The peritoneum was then entered bluntly. The peritoneal incision was extended with good visualization of the bladder. The peritoneal incision was then stretched. An Pascual self-retaining retractor was placed for visualization. The bladder blade was placed. The vesicouterine peritoneum was grasped with smooth pickups and incised with Metzenbaum scissors. Metzenbaum scissors were used to extend the incision bilaterally. The bladder flap was then created digitally and the bladder blade was replaced. A transverse incision was made in the lower uterine segment with a knife and extended bilaterally with the bandage scissors. The head was delivered without difficulty followed by shoulders and body. was bulb suctioned at delivery. The cord was clamped and cut and the was handed to NICU staff in attendance. The placenta was then delivered manually. The uterus was then cleared of all clots and debris. The hysterotomy was then reapproximated with 0 Vicryl in a running locked fashion. A second layer of the same suture was used in imbricating fashion. The hysterotomy was inspected and hemostasis was noted. The Pascual self-retaining retractor was removed. The gutters were irrigated and cleared of all clots and debris. The hysterotomy was again inspected and noted to be hemostatic. Surgicel was placed over the hysterotomy. The peritoneum was reapproximated with 2-0 Vicryl in a running fashion incorporating the rectus muscles. The fascia was reapproximated with 0 Vicryl in a running fashion. The subcutaneous tissue was reapproximated with 3- 0 Vicryl in a running fashion. The skin was reapproximated with vaginal Vicryl in a subcuticular fashion.. The incision was then covered with steri strips and a pressure dressing. The procedure was then ended. The patient tolerated the procedure well and was taken to the PACU in stable condition. All instrument, lap, and needle counts were correct 3.
[2018-11-26] MEDS ORDERED: NEO SYNEPHRINE/NS Syringe(OR USE) IV ONE (09:00)
[2018-11-26] MEDS ORDERED: ZOFRAN ONE (09:00)
--- NOTE | 2018-11-26 09:31 | Post Anesthesia Evaluation ---
- Post Anesthesia Evaluation Patient Participated: Yes Airway Patent: Yes Stable Respiratory Function: Yes Nausea/Vomiting: No Temp > 96.8F: Yes Pain Manageable: Yes Adequeate Hydration: Yes Anesthesia Complications: No Block Receding Appropriately: Yes
[2018-11-26] MEDS ORDERED: TUCKS PAD TP PRN (11:41)
[2018-11-26] MEDS ORDERED: D5LR 1,000 ML IV SCH (11:41)
[2018-11-26] MEDS ORDERED: LANSINOH TP PRN (11:41)
[2018-11-26] MEDS ORDERED: TORADOL IV SCH (12:00)
[2018-11-26] MEDS ORDERED: ANCEF/NS 1 GM/50 ML 1 GM/50 ML BAG IV SCH (12:00)
[2018-11-26] MEDS ORDERED: MORPHINE IV PRN ×2 (12:00)
[2018-11-26] MEDS: TORADOL IV SCH (12:00)
[2018-11-26] MEDS ORDERED: MYLICON PO PRN (12:00)
[2018-11-26 20:57] LABS: Hematocrit 28.1 % (30.3-42.9); Hemoglobin 9.4 gm/dl (10.1-14.3)
[2018-11-26] MEDS ORDERED: MILK OF MAGNESIA PO PRN (22:00)
[2018-11-26] MEDS: ANCEF/NS 1 GM/50 ML 1 GM/50 ML BAG IV SCH (23:00)
[2018-11-27] MEDS: TORADOL IV PRN ×2 (05:54→15:25)
[2018-11-27] MEDS: ANCEF/NS 1 GM/50 ML 1 GM/50 ML BAG IV SCH (07:02)
--- NOTE | 2018-11-27 08:33 | Progress Note ---
Assessment and Plan A/P POD1 arrest of descent for csec doing well BP will watch closely any s/sx of pree will initiate mag. Subjective - Subjective Date of service: 11/27/18 Principal diagnosis: IOL for gHTN Patient reports: appetite normal, voiding normally, pain well controlled, flatus, ambulating normally [place]: doing well Objective - Vital Signs Latest vital signs: Vital Signs Temp Pulse Resp BP BP Pulse Ox 11/27/18 07:50 97.8 F 72 18 162/91 97 11/27/18 05:30 98.6 F 11/27/18 04:18 100.2 F H 68 18 149/88 97 11/27/18 01:17 98.1 F 71 18 138/85 97 11/26/18 21:05 98.2 F 66 18 149/90 11/26/18 17:19 98.9 F 65 18 134/83 99 11/26/18 11:30 97.4 F L 11/26/18 10:45 97.4 F L 11/26/18 10:38 71 18 97 11/26/18 10:15 59 L 18 111/74 98 11/26/18 10:00 58 L 16 114/73 98 11/26/18 09:45 48 L 17 109/66 98 11/26/18 09:30 46 L 16 111/66 98 11/26/18 09:20 48 L 16 106/62 98 11/26/18 09:15 51 L 14 108/62 98 11/26/18 09:11 47 L 14 109/60 98 Intake and Output 11/26/18 11/27/18 11/27/18 23:59 07:59 15:59 Intake Total 890 240 Output Total 1050 300 Balance -160 -60 Intake: IV 50 ANCEF/NS 1 GM/50 ML 1 gm 50 In 50 ml @ 100 mls/hr IV Q8H ON LICENSE OF [facility] Rx#:[id number] Oral 480 Intake, Free Water 360 240 Output: Urine 1050 300 Indwelling Catheter 1050 300 Other: Total, Intake Amount 480 Total, Output Amount 1050 400 - Exam Breasts: Present: normal Cardiovascular: Present: Regular rate, Normal S1 Lungs: Present: Clear to auscultation, Normal air movement Abdomen: Present: normal appearance, soft, normal bowel sounds. Absent: distention, tenderness, guarding Uterus: Present: normal, firm, fundal height below umbilicus. Absent: bogginess, tenderness Extremities: Present: normal Incision: Present: normal, dry, intact - Labs Labs: Abnormal lab results 11/26/18 Range/Units 20:44 Hgb 9.4 L (10.1-14.3) gm/dl Hct 28.1 L (30.3-42.9) %
[2018-11-27] MEDS: FEOSOL PO SCH (09:02)
[2018-11-27] MEDS: NORMODYNE PO SCH ×2 (09:03→22:32)
[2018-11-27] MEDS ORDERED: BOOSTRIX IM ONE (09:05)
[2018-11-27] MEDS ORDERED: M-M-R II VACCINE SUB-Q ONE (09:05)
[2018-11-27] MEDS: IBUPROFEN PO PRN (22:32)
[2018-11-28] MEDS: PERCOCET 5/325 PO PRN ×3 (04:06→20:20)
[2018-11-28] MEDS: TORADOL IV SCH (04:19)
--- NOTE | 2018-11-28 07:53 | Progress Note ---
Assessment and Plan A/P POD2 arrest of descent for csec doing well BP 130-160/90s on labetolol 100 mg po bid close monitor of vs Subjective - Subjective Date of service: 11/28/18 Principal diagnosis: IOL for gHTN Patient reports: appetite normal, voiding normally, pain well controlled, flatus, ambulating normally [place]: doing well Objective - Vital Signs Latest vital signs: Vital Signs Temp Pulse Resp BP BP Pulse Ox 11/28/18 04:15 98.3 F 88 16 140/74 11/28/18 00:00 98.6 F 71 16 147/71 11/27/18 22:32 160/79 11/27/18 21:00 99.3 F 160/79 11/27/18 17:41 98.9 F 74 18 144/88 97 11/27/18 09:03 59 L 148/88 Intake and Output 11/27/18 11/27/18 11/28/18 15:59 23:59 07:59 Intake Total 2080 780 300 Balance 2080 780 300 Intake: Oral 2080 480 Intake, Free Water 300 300 Other: Total, Intake Amount 1040 240 Voiding Method Toilet Toilet # Voids 1 1 - Exam Breasts: Present: normal Cardiovascular: Present: Regular rate, Normal S1 Lungs: Present: Clear to auscultation, Normal air movement Abdomen: Present: normal appearance, soft, normal bowel sounds. Absent: distention, tenderness, guarding Uterus: Present: normal, firm, fundal height below umbilicus. Absent: bogginess, tenderness Extremities: Present: normal Deep Tendon Reflex Grade: Normal +2 Incision: Present: normal, dry, intact
[2018-11-28] MEDS: IBUPROFEN PO PRN (10:55)
[2018-11-28] MEDS: NORMODYNE PO SCH ×2 (10:57→22:50)
[2018-11-28] MEDS: FEOSOL PO SCH (10:57)
[2018-11-28] MEDS: TRIPLE ANTIBIOTIC TP SCH (23:50)
[2018-11-29] MEDS: PERCOCET 5/325 PO PRN ×2 (03:07→09:40)
--- NOTE | 2018-11-29 09:35 | Progress Note ---
Assessment and Plan A: POD#3 s/p primary section at term, Gestational HTN on Labetalol 100 mg BID P: Discharge today with follow up in 1 wk for a blood pressure check. Subjective - Subjective Date of service: 11/29/18 Principal diagnosis: IOL for gHTN, s/p primary Interval history: Pt reports no issues overnight. Patient reports: appetite normal, voiding normally, pain well controlled, flat us, ambulating normally : doing well Objective - Vital Signs Latest vital signs: Vital Signs Temp Pulse Resp BP BP Pulse Ox 11/28/18 23:45 99.4 F 75 20 141/84 96 11/28/18 22:50 78 157/96 11/28/18 20:45 78 20 157/96 95 11/28/18 16:28 97.9 F 72 18 144/88 11/28/18 13:02 98.2 F 80 18 155/89 11/28/18 10:57 140/90 Intake and Output 11/28/18 11/29/18 11/29/18 22:59 06:59 14:59 Intake Total 720 Balance 720 Intake: Oral 720 Other: Total, Intake Amount 240 # Voids Void 1 # Bowel Movements 1 - Exam Breasts: Present: deferred Cardiovascular: Present: Regular rate Lungs: Present: Clear to auscultation Abdomen: Present: soft (obese ), normal bowel sounds Uterus: Present: fundal height below umbilicus Extremities: Present: edema (1+) Incision: Present: intact
[2018-11-29] MEDS: TRIPLE ANTIBIOTIC TP SCH (09:36)
[2018-11-29] MEDS: FEOSOL PO SCH (09:36)
[2018-11-29] MEDS: NORMODYNE PO SCH (09:37)
[2018-11-29] MEDS: IBUPROFEN PO PRN (09:41)
--- NOTE | 2018-11-29 09:43 | Discharge Summary ---
Providers - Providers Date of Admission: 11/26/18 06:53 Date of discharge: 11/29/18 Attending physician: REINA SCHWARTZ MD Primary care physician: REINA SCHWARTZ MD Hospitalization Reason for admission: induction of labor, other (Gestational HTN ) Delivery: Procedure: section, primary low transverse Procedure details: Please see operative report. Incision: intact Other procedures: none complications: none Discharge diagnosis: IUP at term delivered baby: female Hospital course: Patient was admitted with elevated blood pressures for induction of labor. She ultimately underwent a primary section for failed induction of labor which she tolerated well. During her postoperative course he was started on la betalol 100 mg twice a day which brought her blood pressures down to the mild range. On postoperative day #3 she met discharge criteria and will be discharged home. She will follow up in 1 week for blood pressure check. Condition at discharge: Stable Disposition: DC- TO HOME OR SELFCARE - Discharge Diagnoses (1) Obesity Status: Acute Qualifiers: Obesity type: unspecified obesity type (2) S/P section Status: Acute (3) Gestational HTN Status: Acute Qualifiers: Trimester: third trimester Qualified Code(s): O13.3 - Gestational [-induced] hypertension without significant proteinuria, third trimester (4) Term of female Status: Acute (5) Anemia Status: Acute Qualifiers: Anemia type: unspecified type Qualified Code(s): D64.9 - Anemia, unspecifi ed Plan - Discharge Medications Prescriptions: RX: Ferrous Sulfate [Feosol 325 MG tab] 325 mg PO BID #60 tablet RX: Labetalol [Labetalol 100mg TAB] 100 mg PO BID #30 tablet Ibuprofen [Motrin] 800 mg PO Q8HR PRN #30 tablet PRN Reason: Pain, Moderate (4-6) oxyCODONE /ACETAMINOPHEN [Percocet 5/325] 1 tab PO Q6HR PRN #40 tablet PRN Reason: Pain - Provider Discharge Summary Activity: routine, no sex for 6 weeks, no heavy lifting 4 weeks, no strenuous exercise Diet: routine Instructions: routine Additional instructions: [] Smoking cessation referral if applicable(refer to patient education folder for contact #) [] Refer to [facility] Booklet Call your doctor immediately for: * Fever > 100.5 * Heavy vaginal bleeding ( >1 pad per hour) * Severe persistent headache * Shortness of breath * Reddened, hot, painful area to leg or breast * Drainage or odor from incision. * Keep incision clean and dry at all times and follow doctor's instructions regarding bathing/showering - Follow up plan Follow up: TITA BASHIR CNM [Advanced Practice Nurse] - 7 Days (Please call for blood pressure and incision check appt ) Forms: Work/School Release Form
[2018-11-29 12:31] VITALS: BP 150/88
== END 2018-11-29 13:00 | disposition home or self-care (01) | DRG 765 ==
LOC: TRG 11:55 → LD 14:02 → TRG 11-26 06:52 → LD 11-26 06:53 → OB 11-26 11:02
PROVIDERS: ADMIT Obstetrics & Gynecology; ATTEND Obstetrics & Gynecology
PROC: 10D00Z1 Extraction of Products of Conception, Low, Open Approach (ICD-10-PCS; principal; 2018-11-26)
PROC: 3E0234Z Introduction of Serum, Toxoid and Vaccine into Muscle, Percutaneous Approach (ICD-10-PCS; 2018-11-27)
DX: O13.4 Gestational [pregnancy-induced] hypertension without significant proteinuria, complicating childbirth (principal); D62 Acute posthemorrhagic anemia; O90.81 Anemia of the puerperium; Z3A.40 40 weeks gestation of pregnancy; Z37.0 Single live birth; Z91.013 Allergy to seafood; O64.0XX0 Obstructed labor due to incomplete rotation of fetal head, not applicable or unspecified; O99.214 Obesity complicating childbirth; E66.01 Morbid (severe) obesity due to excess calories; O62.1 Secondary uterine inertia; O61.0 Failed medical induction of labor; Z23 Encounter for immunization
CPT/HCPCS: 36415; 59025; 59200; 81001; 82565; 83615; 84450; 84460; 84550; 85014; 85018; 85027; 86592; 86850; 86900; 86901; 87086; 88307; 90471; 90715; G0378; A6250; J0595; J0690; J1885; J2370; J2405; J2590; J2765; J3010; J7120; J7121